=== PATIENT | male | born 1950 | race Asian ===

== ENCOUNTER 2018-09-09 23:28 | Emergency (ER) | payer OTHER ==
[2018-09-09 23:40] VITALS: BP 160/86; PULSE 118; TEMP 97.8; BMI 26.3
--- NOTE | 2018-09-10 00:19 | PDOC ---
History of Present Illness - General History Source: Patient Exam Limitations: No Limitations - History of Present Illness Initial Comments: 09/10/18 00:55 The patient is a 67-year-old male with a past medical history significant for DM , asthma, and HTN presents to the emergency department with R. leg pain. Per son s at bedside, who helped with translating the history. The patient presents with 4 days generalized pain that starts at the R. buttocks and radiates down. The patient reports following up PCP, who prescribed the patient Ibuprofen, Gabapentin, and a muscle relaxant, with relief. The patient reports relief till earlier today. The patient reports he was taking a bath, and following he felt the pain present again. The patient reports the pain is aggravated with movement and walking. The patient reports associated symptoms of numbness to the big toe, currently, mild numbness is felt. Denies back pain. Denies fever, chills, urinary symptoms or changes in bowel habits. Denies prostate issues. Allergies: NKA Social history: No past or present use of tobacco, alcohol or recreational drugs Surgical history: None reported. PCP: Dr. Banuelos <Sylvia Mcgraw - Last Filed: 09/10/18 00:54> <Pantera Rivas - Last Filed: 09/10/18 02:42> - General Chief Complaint: Back Pain Stated Complaint: BACK PAIN Time Seen by Provider: 09/10/18 00:19 Past History <Sylvia Mcgraw - Last Filed: 09/10/18 00:54> - Past Medical History COPD: No CHF: No Diabetes: Yes (NIddm) HTN: Yes - Suicide/Smoking/Psychosocial Hx Smoking History: Never smoked Have you smoked in the past 12 months: No Information on smoking cessation initiated: No Hx Alcohol Use: No Drug/Substance Use Hx: No <Pantera Rivas - Last Filed: 09/10/18 02:42> - Past Medical History Allergies/Adverse Reactions: Allergies Allergy/AdvReac Type Severity Reaction Status Date / Time No Known Allergies Allergy Verified 09/09/18 23:36 Home Medications: Ambulatory Orders Amlodipine Besylate 10 mg PO DAILY 09/10/18 Cyclobenzaprine HCl 10 mg PO PRN 09/10/18 Gabapentin 100 mg PO PRN 09/10/18 Ibuprofen 600 mg PO PRN 09/10/18 Metformin HCl [Metformin HCl ER] 500 mg PO BID 09/10/18 Tramadol HCl 50 mg PO TID #10 tablet MDD 3 09/10/18 Review of Systems - Review of Systems Able to Perform ROS?: Yes Comments:: 09/10/18 01:02 CONSTITUTIONAL: No fever, no chills, no fatigue EYES: No visual changes ENT: No ear pain, no sore throat CARDIOVASCULAR: No chest pain, no palpitations RESPIRATORY: No cough, no SOB GI: No abdominal pain, no nausea, no vomiting, no constipation, no diarrhea GENITOURINARY: No dysuria, no frequency, no hematuria MUSKULOSKELETAL: +R. Leg pain. No backpain, no joint pain, no myalgias SKIN: No rash NEURO: No headache <Sylvia Mcgraw - Last Filed: 09/10/18 00:54> *Physical Exam - Vital Signs Last Vital Signs Temp Pulse Resp BP Pulse Ox 97.8 F 118 H 20 160/86 100 09/09/18 23:37 09/09/18 23:37 09/09/18 23:37 09/09/18 23:37 09/09/18 23:37 <Sylvia Mcgraw - Last Filed: 09/10/18 00:54> - Vital Signs Last Vital Signs Temp Pulse Resp BP Pulse Ox 97.8 F 118 H 20 160/86 100 09/09/18 23:37 09/09/18 23:37 09/09/18 23:37 09/09/18 23:37 09/09/18 23:37 - Physical Exam Comments: 09/10/18 02:32 EXAMINATION CONSTITUTIONAL: Well-appearing; well-nourished; in no apparent distress HEAD: Normocephalic; atraumatic EYES: PERRL; EOM intact ENMT: External appears normal; normal oropharynx NECK: Supple; non-tender; no cervical lymphadenopathy CARD: Normal S1, S2; no murmurs, rubs, or gallops RESP: Normal chest excursion with respiration; breath sounds clear and equal bilaterally; no wheezes, rhonchi, or rales ABD: Soft, non-distended; non-tender; no palpable organomegaly, no palpable hernias PELVIS: Stable; BACK: No midline tenderness or deformity appreciated; EXT: Right lower extremity: No obvious deformity; mild tenderness to palpation along the right gluteal area with pain on external/internal rotation of the femur within the hip joint; straight leg raise is negative; neurovascularly intact distally; DTRs are +2 bilaterally; distal pulses intact; sensation is intact bilaterally; patient ambulates with a slight limp. SKIN: Warm, dry, no rash NEURO: No focal neurological deficiencies. <Pantera Rivas - Last Filed: 09/10/18 02:42> Moderate Sedation - Procedure Monitoring Vital Signs: Procedure Monitoring Vital Signs Temperature 97.8 F 09/09/18 23:37 Pulse Rate 118 H 09/09/18 23:37 Respiratory Rate 20 09/09/18 23:37 Blood Pressure 160/86 09/09/18 23:37 O2 Sat by Pulse Oximetry (%) 100 09/09/18 23:37 <Sylvia Mcgraw - Last Filed: 09/10/18 00:54> - Procedure Monitoring Vital Signs: Procedure Monitoring Vital Signs Temperature 97.8 F 09/09/18 23:37 Pulse Rate 118 H 09/09/18 23:37 Respiratory Rate 20 09/09/18 23:37 Blood Pressure 160/86 09/09/18 23:37 O2 Sat by Pulse Oximetry (%) 100 09/09/18 23:37 <Pantera Rivas - Last Filed: 09/10/18 02:42> ED Treatment Course - Medications Given in the ED: ED Medications Discontinued Medications Generic Name Dose Route Start Last Admin Trade Name Gopiq PRN Reason Stop Dose Admin Tramadol HCl 50 mg 09/10/18 00:33 09/10/18 00:42 Ultram - PO 09/10/18 00:34 50 mg ONCE ONE Administration <Sylvia Mcgraw - Last Filed: 09/10/18 00:54> Medical Decision Making - Medical Decision Making 09/10/18 02:34 67-year-old male presents with atraumatic right lower extremity pain. LS spine x -rays, hip and pelvic x-rays reveal no obvious fracture dislocation. Serial exams reveal no focal neurological deficits, there is no decreased sensation, strength is intact bilaterally. Patient is neurovascularly intact bilaterally. Patient ambulates with a slight limp. I do not suspect cauda equina or conus medullaris syndrome at this time. Will discharge with pain meds with PMD follow- up. <Pantera Rivas - Last Filed: 09/10/18 02:42> *DC/Admit/Observation/Transfer - Attestations Scribe Attestion: 09/10/18 01:05 Documentation prepared by Sylvia Mcgraw, acting as vp medical for Pantera Rivas MD. <Sylvia Mcgraw - Last Filed: 09/10/18 00:54> - Attestations Physician Attestion: 09/10/18 02:32 The documentation was prepared by the scribe under my direct supervision. I have reviewed the documentation which correctly represents the findings, medical decision-making and critical action taken by me. <Pantera Rivas - Last Filed: 09/10/18 02:42> Diagnosis at time of Disposition: Leg pain, right - Discharge Dispostion Disposition: HOME Condition at time of disposition: Stable - Referrals Referrals: Jean Paul Banuelos MD [Primary Care Provider] - - Patient Instructions Printed Discharge Instructions: DI for Leg Pain Additional Instructions: Follow-up with your primary care physician. Return immediately for numbness or inability to bear weight. Do not take tramadol and cyclobenzaprine at the same time. - Post Discharge Activity Forms/Work/School Notes: Back to Work
[2018-09-10] MEDS ORDERED: traMADol HCL 50 MG TABLET PO ONE (00:33)
[2018-09-10] MEDS ORDERED: traMADol HCL 50 MG TABLET ONE (00:38)
--- NOTE | 2018-11-18 20:32 | EKG ---
Test Reason : Blood Pressure : / mmHG Vent. Rate : 106 BPM Atrial Rate : 106 BPM P-R Int : 170 ms QRS Dur : 092 ms QT Int : 340 ms P-R-T Axes : 066 054 055 degrees QTc Int : 451 ms SINUS TACHYCARDIA WITH FREQUENT PREMATURE VENTRICULAR COMPLEXES IN A PATTERN OF BIGEMINY BIATRIAL ENLARGEMENT POSSIBLE ANTERIOR INFARCT , AGE UNDETERMINED ABNORMAL ECG NO PREVIOUS ECGS AVAILABLE Confirmed by STUART MORSE, LAY ([id number]) on 11/18/2018 8:32:24 PM Referred By: Confirmed By:LAY DAVIDSON MD
== END 2018-09-10 02:59 | disposition home or self-care (01) ==
LOC: JER 23:28
DX: M79.604 Pain in right leg (principal); I10 Essential (primary) hypertension; E11.9 Type 2 diabetes mellitus without complications; Z79.84 Long term (current) use of oral hypoglycemic drugs; Z87.09 Personal history of other diseases of the respiratory system
CPT/HCPCS: 72100-TC-FY; 73523-TC-FY; 93005; 93010; 99282-25